=== PATIENT | male | born 1955 | race Caucasian/White ===

== ENCOUNTER → 2018-07-16 | Outpatient (CLI) | payer OTHER ==
--- NOTE | 2018-07-16 16:52 | RAD ---
Scrotal ultrasound History: Left scrotal pain. Comparison: None. Technique: Grayscale, color Doppler, and spectral Doppler imaging was performed of the scrotum and contents. Findings: Right testicle measures 3.0 x 2.0 x 2.3 cm. Left testicle measures 3.0 x 1.4 x 2.5 cm. Both testicles have homogeneous echogenicity and are without evidence of mass. Bilateral epididymides have unremarkable appearance. Trace bilateral hydroceles are seen. Both testicles demonstrate normal vascular flow upon Doppler interrogation and are without evidence of torsion. Impression: 1. Trace bilateral hydroceles. 2. No evidence of testicular mass or torsion. Electronically signed by: Andrew Ramsey MD (07/16/2018 4:49 PM) [place] [id number]
== END | disposition home or self-care (01) ==
LOC: US 13:31
PROVIDERS: ATTEND Family Medicine
DX: N50.812 Left testicular pain (principal); N43.2 Other hydrocele
CPT/HCPCS: 76870